=== PATIENT | female | born 1970 | race Hispanic/Latino ===

== ENCOUNTER 2019-02-24 07:00 | Day surgery (SDC) | payer OTHER ==
[2019-02-24] MEDS ORDERED: Ringers Lactate 1,000 ML IV ONE (07:59)
[2019-02-24] MEDS ORDERED: LIDOCAINE 1% MPF 5 ML VIAL ONE (09:08)
[2019-02-24] MEDS ORDERED: PROPOFOL 200 MG/20 ML VIAL IV ONE (09:08)
--- NOTE | 2019-02-24 13:58 | OP ---
Surgeon: Morgan Cortez MD Procedure To Be Performed: Esophagogastroduodenoscopy. Indication For Procedure: Chronic liver disease, bilateral varices, also on and off abdominal pain. Plan For Anesthesia: Monitored anesthesia care. Complexity: Average. Technique: After obtaining informed consent from the patient explaining risks and complications whic h include, but are not limited to bleeding, infection, perforation, and anesthesia complication, the patient was placed in left lateral position and sedation was given. From then on, the scope was adva nced through the mouth and carefully guided up till the 3rd portion of the duodenum. After the compl etion of the procedure, the scope and equipment were withdrawn and procedure terminated in a safe man ner. Findings: Esophagus: No gross lesion seen in the entire esophagus. The GE junction was at 35 cm. Stomach: Mild patchy erythema seen in the body and antrum. Biopsies taken. Duodenum: In the duodenal mucosa appeared to mildly granular. The scope was advanced to the third p ortion and small bowel biopsies taken to rule out celiac disease. No other gross abnormality was see n in the duodenum. Tolerance To Anesthesia: Excellent. Postoperative Diagnosis: Mild gastritis. Plan: 1.Await pathology results. 2.May need PPI based on pathology. 3.Follow up in the GI clinic in 2 weeks. US/MODL Voice ID: [id number] Report ID: [id number]
== END 2019-02-24 09:48 | disposition home or self-care (01) ==
LOC: OR 07:00
PROVIDERS: ATTEND Internal Medicine Gastroenterology
PROC: 0DB88ZX Excision of Small Intestine, Via Natural or Artificial Opening Endoscopic, Diagnostic (ICD-10-PCS; 2019-02-24)
PROC: 0DB68ZX Excision of Stomach, Via Natural or Artificial Opening Endoscopic, Diagnostic (ICD-10-PCS; principal; 2019-02-24 08:45)
DX: K29.50 Unspecified chronic gastritis without bleeding (principal); K76.0 Fatty (change of) liver, not elsewhere classified; Z88.6 Allergy status to analgesic agent; Z83.3 Family history of diabetes mellitus; Z82.49 Family history of ischemic heart disease and other diseases of the circulatory system
CPT/HCPCS: 88305; 88312; J2704